=== PATIENT | male | born 1985 | race Caucasian/White ===

== ENCOUNTER → 2023-11-16 09:19 | Outpatient (BNVA) | payer SELFPAY | PROVIDERS: Visit Provider Physician Assistant ==

== ENCOUNTER 2024-09-10 22:23 | Emergency (ER) | payer OTHER, SELFPAY ==
[2024-09-10 22:28] VITALS: BP 123/78; PULSE 96; RESP 16; TEMP 37; O2SAT 99; BMI 29.1
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
[2024-09-11] MEDS: Diphth,Pertus(ACell),Tet Adult 0.5 ML SYRINGE IM (01:07)
[2024-09-11 01:11] VITALS: BP 123/78; PULSE 96; RESP 16; TEMP 37; O2SAT 99
== END 2024-09-11 01:11 | disposition home or self-care (01) ==
PROVIDERS: Emergency Provider Emergency Medicine; PCP Internal Medicine
DX: S50.812A Abrasion of left forearm, initial encounter (principal); W45.0XXA Nail entering through skin, initial encounter; Y93.89 Activity, other specified; Y92.89 Other specified places as the place of occurrence of the external cause; Y99.0 Civilian activity done for income or pay; Z23 Encounter for immunization
CPT/HCPCS: 90471; 90715; 99284